=== PATIENT | female | born 1965 | race Caucasian/White ===

== ENCOUNTER 2020-10-21 17:24 | Emergency (ER) | payer OTHER ==
[~2020-10-21] VITALS: Ht 170.2 cm; Wt 92.7 kg
[2020-10-21] MEDS ORDERED: DOCUSATE 100 MG/10 ML SOLUTION. AS ONE (18:15)
--- NOTE | 2020-10-21 18:24 | ED.ADGEN ---
Past Medical History Past Medical History: Depression Past Surgical History: Other Additional Past Surgical Histo: hemmorrhoids Smoking Status: Current Every Day Smoker Alcohol Use: None Drug Use: None General Adult EDM: Chief Complaint: EARACHE/EAR PAIN HPI: HPI: Patient is a 54 year old female patient coming in for pain, clogging, and decreased hearing from her left ear. Feels that she has a cerumen impaction and has been using hydrogen peroxide and Q-tips to try to remove it. Has had similar episodes of this in the past. No other complaints otherwise been well, has not had her Covid vaccines. Review of Systems: Review of Systems: All other systems within normal limits except for as noted in the HPI Current Medications: Current Medications Medications (Trade) Dose Ordered Sig/Lashonda Start Time Stop Time Status Last Admin Dose Admin Docusate Sodium (Colace Solution) 100 mg 1X ONCE 10/21/20 18:15 10/21/20 18:17 DC 10/21/20 18:58 100 MG Allergies: Allergies: Allergies Coded Allergies Type Severity Reaction Last Updated Verified No Known Drug Allergies 08/22/14 No Physical Exam: PE: Constitutional: Well developed, well nourished, no acute distress, non-toxic appearance. [] HENT: Normocephalic, atraumatic, bilateral external ears normal, right-sided ear canal and TM normal, cerumen impaction in left ear with normal canal nose normal. [] Eyes: PERRLA, conjunctiva normal, no discharge. [] Neck: No rigidity, supple, no stridor. [] Cardiovascular: Regular rate and rhythm, brisk cap refill [] Lungs & Thorax: Non labored symmetric respirations, no tachypnea or respiratory distress [] Abdomen: Soft, nondistended. Skin: Warm, dry, no erythema, no rash. [] Back: Unremarkable Extremities: No deformities, range of motion grossly intact, no lower extremity edema [] Neurologic: Alert and oriented X 3, no focal deficits noted. [] Psychologic: Affect normal, judgement normal, mood normal. [] Current Patient Data: Vital Signs: Vital Signs Date Time Temp Pulse Resp B/P (MAP) Pulse Ox O2 Delivery O2 Flow Rate FiO2 10/21/20 19:05 98.9 98 18 157/92 (112) 98 Room Air 98.9 EKG: EKG: [] Heart Score: C/O Chest Pain: No Risk Factors: Risk Factors: DM, Current or recent (<one month) smoker, HTN, HLP, family history of CAD, obesity. Risk Scores: Score 0 - 3: 2.5% MACE over next 6 weeks - Discharge Home Score 4 - 6: 20.3% MACE over next 6 weeks - Admit for Clinical Observation Score 7 - 10: 72.7% MACE over next 6 weeks - Early Invasive Strategies Radiology/Procedures: Radiology/Procedures: Your infuses Colace and had to sit in left ear, irrigate with saline for cerumen disimpaction [] Course & Med Decision Making: Course & Med Decision Making Pertinent Labs and Imaging studies reviewed. (See chart for details) [] Dragon Disclaimer: Dragon Disclaimer: This electronic medical record was generated, in whole or in part, using a voice recognition dictation system. Departure Departure Impression: Primary Impression: Impacted cerumen of left ear Disposition: HOME / SELF CARE / HOMELESS Condition: STABLE Referrals: NO PCP (PCP) Patient Instructions: Cerumen Impaction PAMELA ESPOSITO MD Oct 21, 2020 18:24
[2020-10-21 19:05] VITALS: BP 157/92
== END 2020-10-21 20:43 | disposition home or self-care (01) ==
LOC: ER 17:24
DX: H61.22 Impacted cerumen, left ear (principal); F17.200 Nicotine dependence, unspecified, uncomplicated
CPT/HCPCS: 69209; 99282

== ENCOUNTER 2021-08-02 12:22 | Emergency (ER) | payer OTHER ==
[~2021-08-02] VITALS: Ht 170.2 cm; Wt 93.8 kg
[2021-08-02 12:29] VITALS: BP 163/88
[2021-08-02] MEDS ORDERED: PHENYLEPHRINE 0.25% NASAL SPRAY 15ML BOTTLE. NS PRN (12:45)
--- NOTE | 2021-08-02 13:07 | RAD ---
XR CHEST 1V History: Reason: cough/ congestion / Spl. Instructions: / History: Comparison: August 22, 2014 Findings: No consolidation or pleural effusion. Normal heart size. No pneumothorax. Impression: 1. No acute cardiopulmonary process. Electronically signed by: Marlon Kurtz DO (08/02/2021 1:04 PM) [facility] [place]
--- NOTE | 2021-08-02 13:55 | PHYS DOC ---
Past Medical History Past Medical History: Depression Additional Past Medical Histor: "heart murmur" Past Surgical History: Other Additional Past Surgical Histo: hemmorrhoids Smoking Status: Current Every Day Smoker Alcohol Use: None Drug Use: None General Adult EDM: Chief Complaint: COUGH HPI: HPI: Patient is a 55 year old female presents with sinus congestion and cough for the last 3 days. Patient states that she did take a COVID test yesterday which was negative. Patient states that she has not had symptoms like this prior. States that she does smoke cigarettes and does have COPD and is worried that she has pneumonia and want to be checked out. Patient denies any wheezing. Review of Systems: Review of Systems: Constitutional: Denies fever or chills. [] Eyes: Denies change in visual acuity. [] HENT: Reports nasal congestion or sore throat Respiratory: Dry nonproductive cough denies cough or shortness of breath. [] Cardiovascular: Denies chest pain or edema. [] GI: Denies abdominal pain, nausea, vomiting, bloody stools or diarrhea. [] : Denies dysuria. [] Musculoskeletal: Denies back pain or joint pain. [] Integument: Denies rash. [] Neurologic: Denies headache, focal weakness or sensory changes. [] Endocrine: Denies polyuria or polydipsia. [] Lymphatic: Denies swollen glands. [] Psychiatric: Denies depression or anxiety. [] Heart Score: C/O Chest Pain: No Risk Factors: Risk Factors: DM, Current or recent (<one month) smoker, HTN, HLP, family history of CAD, obesity. Risk Scores: Score 0 - 3: 2.5% MACE over next 6 weeks - Discharge Home Score 4 - 6: 20.3% MACE over next 6 weeks - Admit for Clinical Observation Score 7 - 10: 72.7% MACE over next 6 weeks - Early Invasive Strategies Current Medications: Current Medications Medications (Trade) Dose Ordered Sig/Lashonda Start Time Stop Time Status Last Admin Dose Admin Phenylephrine HCl (Jonh-Synephrine 0.25% Nasal) 2 spray PRN Q4HRS PRN 08/02/21 12:45 08/02/21 13:17 2 SPRAY Allergies: Allergies: Allergies Coded Allergies Type Severity Reaction Last Updated Verified No Known Drug Allergies 08/22/14 No Physical Exam: PE: Constitutional: Well developed, well nourished, no acute distress, non-toxic appearance. [] HENT: Normocephalic, atraumatic, bilateral external ears normal, oropharynx moist, no oral exudates, nose normal. [] Eyes: PERRLA, EOMI, conjunctiva normal, no discharge. [] Neck: Normal range of motion, no tenderness, supple, no stridor. [] Cardiovascular:Heart rate regular rhythm, no murmur [] Lungs & Thorax: Bilateral breath sounds clear to auscultation [] Abdomen: Bowel sounds normal, soft, no tenderness, no masses, no pulsatile masses. [] Skin: Warm, dry, no erythema, no rash. [] Back: No tenderness, no CVA tenderness. [] Extremities: No tenderness, no cyanosis, no clubbing, ROM intact, no edema. [] Neurologic: Alert and oriented X 3, normal motor function, normal sensory function, no focal deficits noted. [] Psychologic: Affect normal, judgement normal, mood normal. [] Current Patient Data: Vital Signs: Vital Signs Date Time Temp Pulse Resp B/P (MAP) Pulse Ox O2 Delivery O2 Flow Rate FiO2 08/02/21 12:29 99.6 95 22 163/88 (113) 100 Room Air 99.6 EKG: EKG: [] Radiology/Procedures: Radiology/Procedures: []XR CHEST 1V History: Reason: cough/ congestion / Spl. Instructions: / History: Comparison: August 22, 2014 Findings: No consolidation or pleural effusion. Normal heart size. No pneumothorax. Impression: 1. No acute cardiopulmonary process. Course & Med Decision Making: Course & Med Decision Making Pertinent Labs and Imaging studies reviewed. (See chart for details) [] Patient's checks x-ray was reviewed. Patient is hemodynamically stable and feels fine. Patient will follow-up in the outpatient setting and return precaut ions were discussed Jaz Disclaimer: Jaz Disclaimer: This electronic medical record was generated, in whole or in part, using a voice recognition dictation system. Departure Departure Referrals: NO PCP (PCP) MAIDA CHIN DO Aug 02, 2021 13:55
[2021-08-02] MEDS ORDERED: LORA1TAB47 PO ×2 (13:58→13:59)
== END 2021-08-02 14:08 | disposition home or self-care (01) ==
LOC: ER 12:22
DX: R09.81 Nasal congestion (principal); R05.9 Cough, unspecified; J02.9 Acute pharyngitis, unspecified; F17.200 Nicotine dependence, unspecified, uncomplicated
CPT/HCPCS: 71045; 99283